=== PATIENT | female | born 1975 | race Two or more races ===

== ENCOUNTER 2024-12-22 17:35 | Emergency (ER) | payer OTHER ==
[~2024-12-22] VITALS: Ht 160 cm; Wt 86.4 kg
--- NOTE | 2024-12-22 17:49 | ECG ---
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
[2024-12-22] MEDS ORDERED: CYCL-838 PO (20:42)
[2024-12-22] MEDS ORDERED: GABA300T4 PO (20:42)
[2024-12-22] MEDS: MORPHINE SULFATE 4 MG/ML SYR/VIAL IV ONE (22:35)
[2024-12-22] MEDS: ONDANSETRON HCL 4 MG/2 ML VIAL IV ONE (22:35)
[2024-12-22 22:43] VITALS: PULSE 63; RESP 18; TEMP 97.8; O2SAT 95
[2024-12-22 23:03] VITALS: BP 113/72; PULSE 83; RESP 18
== END 2024-12-22 23:10 | disposition home or self-care (01) ==
LOC: ER 17:35 → EDBD 17:35 → ER 23:07
DX: S13.4XXA Sprain of ligaments of cervical spine, initial encounter (principal); S23.3XXA Sprain of ligaments of thoracic spine, initial encounter; S43.401A Unspecified sprain of right shoulder joint, initial encounter; I10 Essential (primary) hypertension; E03.9 Hypothyroidism, unspecified; E66.9 Obesity, unspecified; Z68.33 Body mass index [BMI] 33.0-33.9, adult; Z79.899 Other long term (current) drug therapy; V43.52XA Car driver injured in collision with other type car in traffic accident, initial encounter; Y93.I9 Activity, other involving external motion; Y92.89 Other specified places as the place of occurrence of the external cause; Y99.8 Other external cause status
CPT/HCPCS: 70450; 71046; 72100; 72125; 73030; 93005; 96374; 96375; 99285; J2270; J2405